=== PATIENT | female | born 1935 | race Caucasian/White ===

== ENCOUNTER → 2016-06-02 | Outpatient (CLI) | payer MEDICARE, OTHER ==
--- NOTE | 2016-06-02 15:48 | RAD ---
Indication injury, pain. Injury sustained one day earlier. AP oblique and lateral views of the right ankle were obtained. There is some soft tissue swelling over the lateral malleolus. An acute bony finding is not seen.
== END | disposition home or self-care (01) ==
LOC: RAD 14:56
PROVIDERS: ATTEND Internal Medicine
DX: S93.401A Sprain of unspecified ligament of right ankle, initial encounter (principal); M25.471 Effusion, right ankle
CPT/HCPCS: 73610

== ENCOUNTER → 2017-11-16 | Outpatient (CLI) | payer MEDICARE, OTHER ==
[~2017-11-16] MED LIST: REGADENOSON 0.4 MG/5 ML DISP.SYRIN. IV ONE
--- NOTE | 2017-11-16 11:44 | RAD ---
MR#: [id number] Date of Study: 11/16/2017 Ordering Physician: JERED LAM, Referring Physician: KVNG TOUSSAINT Tech: RT Joan (Gilberto) (N) APPROVED REPORT Test Type: Pharmacological Stress Nurse/Tech: Kimberly Lee R.N. Test Indications: chest pain Cardiac History: Family history, Hypertension Medications: See Electronic Medical Record Medical History: See Electronic Medical Record Resting ECG: NSR Resting Heart Rate: 58 bpm Resting Blood Pressure: 164/69mmHg Pretest Chest Pain: No chest pain Nurse/Tech Notes S1S2, lungs sound clear Consent: The procedure was explained to the patient in lay terms. Informed consent was witnessed. Alec eout was entered into [employer]. History and Stress Test performed by Kimberly Lee R.N. Pharm. Details Pharmacologic stress testing was performed using 0.4mg per 5ml of regadenoson given intravenously ove r 7-10 seconds. Stress Symptoms No chest pain or symptoms. POST EXERCISE Reason for Termination: Infusion complete Target HR: 119 Max HR: 81 bpm Max Blood Pressure: 150/48mmHg Blood Pressure response to exercise: Normal blood pressure response during stress. Chest Pain: No. Arrhythmia: No. ST Change: No. INTERPRETATION Stress EKG Conclusion: Baseline EKG showed sinus rhythm. No ischemic changes at peak stress. No arr hythmias. Imaging Protocol IMAGE PROTOCOL: Rest Tc-99m/stress Tc-99m 1 day Rest: Stress: Viability: Radiopharm.Tc99m [id number] Sestamibi Dose12.6mCi 35.3mCi Duration 13min. 13min. Img Date 11/16/2017 11/16/2017 Inj-Img [id number]. 60min. Rest Admin Site:IV - Left AntecubitalAdministrator:VONDA Leonard Stress Admin Site: IV - Left AntecubitalAdministrator: VONDA Leonard STRESS DATA End Diast. Vol.54.0mlLVEDV index BSA38.0ml End Syst. Vol.12.0mlLVESV index BSA9.0ml Myocardial Mass93.0gEject. Rcqutaue72.0% Stress Scores Regional WT2.00Summed WT8.00 Regional WM0.00Summed WM0.00 Study quality was good. Left Ventricular size was Normal at Rest and Stress. Lung uptake was Normal. Left Ventricular ejection fraction is 78%. The rest and stress images show normal perfusion, normal contraction and thickening. LV Perf. Quant 17 Seg. SSS0.00 17 Seg. SRS0.00 17 Seg. SDS0.00 Stress Defect Extent (% LAD)0.00Rest Defect Extent (% LAD)0.00Rev. Defect Extent (% LAD)0.00 Stress Defect Extent (% LCX) 0.00Rest Defect Extent (% LCX)0.00Rev. Defect Extent (% LCX)0.00 Stress Defect Extent (% RCA)0.00Rest Defect Extent (% RCA)0.00Rev. Defect Extent (% RCA)0.00 Stress Defect Extent (% MARIAH)0.00Rest Defect Extent (% MARIAH)0.00Rev. Defect Extent (% MARIAH)0.00 Conclusion 1. Regadenoson cardioisotope stress test did not show any evidence of ischemia or infarct. 2. Normal left ventricular systolic function with ejection fraction calculated at 78%. 3. Low risk for cardiac events. Signed by : Jason Uriostegui, Electronically Approved : 11/16/2017 11:42:59
== END | disposition home or self-care (01) ==
LOC: NM 08:10
PROVIDERS: ATTEND Internal Medicine
DX: R07.9 Chest pain, unspecified (principal); Z82.49 Family history of ischemic heart disease and other diseases of the circulatory system
CPT/HCPCS: 78452; 93017; 96374; 96375; 96376; A9500; J2785

== ENCOUNTER → 2020-07-18 | Outpatient (CLI) | payer MEDICARE, OTHER ==
[~2020-07-18] MED LIST changes: +ASPI-630 PO; +IOHEXOL 180 MG/ML 10 ML VIAL. ONE; +LOVA20TA2 PO; +MECL12.582 PO; +MELO7.5T29 PO; +PHEN300C4 PO; -REGADENOSON 0.4 MG/5 ML DISP.SYRIN. IV ONE; +SERT50TA PO; +VALP250C2 PO; +VITA25006 PO; +methylPREDNISolone ACETATE 40 MG/ML VIAL. ONE; +methylPREDNISolone ACETATE 80 MG/ML VIAL. ONE
--- NOTE | 2020-07-18 13:23 | PDOC1 ---
INITIAL PAIN CONSULT DATE OF SERVICE: DOS: DATE: 07/18/20 TIME: 13:17 CHIEF COMPLAINT: Chief Complaint: Low back and right lower extremity pain HISTORY OF PRESENT ILLNESS: 85-year-old female presents history of pain in the low back and bilateral hips as well as her right lower extremity for many years patient reports is worse over the past 2 years or so, with pain increasing the low back rating the right lower extremity posterior gluteus posterior lateral thigh lateral anterior thigh anterior medial thigh. Patient scribes as sharp and throbbing with numbness and radiating pain worse with walking standing changing positions cramping aching in the back with shooting pain in the leg patient reports is better with sitting or laying down but it wakes her from sleep occasionally not every night. Patient reports it does not affect her bowel bladder control but does affect ability to walk significantly she is not use any assistive devices however. Patient reports he simply putting up with the pain for about the last 2 years but is getting to the point where she would like to have something done with it. Patient reports her disability rating 0-10 10 being the worst is a 5 with self- care activities 3 of life support activities 3 with social activity 5 with recreational activities and 5 with family and home responsibilities. Patient did have a MRI scan lumbar spine showing previous L5-S1 fusion with posterior instrumentation levoscoliosis of the lumbar spine and facet arthropathy with susceptibility artifacts noted from the posterior fusion making it difficult to evaluate the 3 4 and 4 5 levels. Patient reports no loss of motor function but significant fatigability with walking and standing especially with right lower extremity. Patient has been doing some stretching at home on her own but is had no formal physical therapy at this time has had some chiropractic treatment which was helpful but only temporarily. Patient is taking vtmy-eza-gvzhsuy Tylenol which helps but only by about 20%. PAST MEDICAL HISTORY: PMH: Dizziness, arthritis, hearing loss PREVIOUS SURGERIES: Past Surgical Hx: Lumbar fusion, cholecystectomy CURRENT MEDICATIONS: Current Meds: Active Scripts Medications Dose Route/Sig Max Daily Dose Days Date Category Noxifol-D3 2,500 Unit-1 mg Tab (Vitamin D3/Folic Acid) 2,500 Unit Tablet 1 Tab PO DAILY 30 07/18/20 Reported Aspirin 81 Mg Tab.chew 1 Tab PO DAILY 07/18/20 Reported Valproic Acid 250 Mg Capsule 250 Mg PO TID 07/18/20 Reported Meloxicam 7.5 Mg Tablet 1 Tab PO DAILY 30 07/18/20 Reported Zoloft (Sertraline Hcl) 50 Mg Tablet 1 Tab PO DAILY 07/18/20 Reported Meclizine Hcl 12.5 Mg Tablet 1 Tab PO TID 07/18/20 Reported Phenytoin Sodium Extended 300 Mg Capsule 1 Cap PO QHS 30 07/18/20 Reported Lovastatin 20 Mg Tablet 1 Tab PO BID 07/18/20 Reported ALLERGIES; Allergies: Coded Allergies: codeine (Verified Adverse Reaction, Intermediate, from tylenol #3, made her sick, 07/18/20) FAMILY HISTORY: Family Hx: No major medical problems or conditions that she is aware of. SOCIAL HISTORY: Social Hx: Patient is nondrug alcohol does not smoke not use any illegal illicit recreational drugs is lives on her own and lives locally in [facility] and reports that she is retired. REVIEW OF SYSTEMS: ROS: Positive for those items mentioned in history of present illness, all systems are reviewed, otherwise negative ,and are complete full and well-documented on patient's chart. PHYSICAL EXAM: VS: Blood pressure is 144/88 pulse 63 respiration 16 temperature 98.1 F height is 4 foot 11 inches weight is 106 pounds PE: PHYSICAL EXAMINATION: GENERAL: The patient is awake, alert, oriented, appropriate, very pleasant demeano, patient coming by her daughter. HEENT: Shows normocephalic, atraumatic. Extraocular movements are intact and symmetrical. Oral cavity: Mucous membranes moist and pink. NECK: Shows anterior throat supple without palpable lymphadenopathy noted. Swallow reflex symmetrical. CHEST: Shows normal on inspection. Breath sounds are clear bilaterally, distant but no rales or rhonchi auscultated. HEART: Shows S1, S2 clear. No murmurs auscultated. ABDOMEN: Soft, nontender, nondistended, obese. No palpable organomegaly is noted. No rebound or guarding demonstrated. BACK: Shows spine grossly in the midline. Normal-appearing cervical lordotic curvature. There is slightly increased thoracic kyphosis, some minor flattening of the lumbar lordotic curvature. Lumbar paraspinous muscles show symmetrical on inspection, on palpation shows some moderate tenderness diffusely throughout the upper, middle and lower distribution of the paraspinous muscles bilaterally and also into the lower thoracic paraspinous musculature, firm and tender, but without specific trigger points, without radiation of pain. The patient has good rotational motion of the lumbar spine, both laterally as well as extension and flexion without significant difficulty. EXTREMITIES: Lower extremities show deep tendon reflexes 1 in the patellar and tendo calcaneus tendons. Motor exam is 4 on a scale of 5 with right dorsiflexion, extension, quadriceps and hamstring flexion and 5/5 on the left. Peripheral pulses are 1 posterior tibial. No peripheral edema is noted bilaterally. Lower extremities are warm and dry to touch, equal in color and appearance. Straight leg raise noted to be positive on the right about 35 degrees, left side is negative. Gaenslen's and Malcom's maneuvers are negative bilaterally as well. The patient is able to stand but needs assistance getting up from seated position, walks with a very shuffling gait but not use any assistive devices to ambulate. SKIN: Shows warm and dry, good turgor. No edema. No sores, rashes or bruising throughout. IMPRESSION: Impression: 85-year-old female with long history of low back right lower extremity pain and radicular fashion MRI scan lumbar spine as noted Arthritis Plan: Options were discussed with the patient patient's daughter who accompanied her visit today. We discussed conservative medical management physical therapies and interventional techniques. Patient would like to pursue interventional techniques. We discussed a lumbar epidural steroid injection using description as well as anatomical models to describe the procedure. Risks were discussed including but not limited to: Bleeding, infection, possibility of epidural hematoma and subsequent neurological compromise, dural puncture, headaches, spinal cord and/or nerve damage, side effects of steroid medication, and poor results regarding pain control. Patient understands and wished to proceed. Patient will return to clinic in approximate 2 weeks for follow-up, was counseled as return appointment activity level and side effects to be aware of. Procedure is lumbar epidural steroid injection under local anesthetic using sterile prep and drape at the L4-5 level using C-arm fluoroscopic guidance in both AP and lateral views medications injected is 120 mg Depo-Medrol + 10 mL preservative-free normal saline and 2 mL contrast- condition at discharge is stable patient tolerated procedure well had no complications. ACE MEJÍA MD Jul 18, 2020 13:23
== END | disposition home or self-care (01) ==
LOC: PNCL 08:30
PROVIDERS: ATTEND Anesthesiology
DX: M54.5 Low back pain (principal); M79.604 Pain in right leg; M19.90 Unspecified osteoarthritis, unspecified site; Z79.82 Long term (current) use of aspirin; Z79.899 Other long term (current) drug therapy; Z88.5 Allergy status to narcotic agent
CPT/HCPCS: 62323; J1030; J1040; Q9965

== ENCOUNTER → 2020-08-01 | Outpatient (CLI) | payer MEDICARE, OTHER ==
--- NOTE | 2020-08-01 08:52 | PDOC ---
Progress Note - Pain Clinic Date of Service: DOS: DATE: 08/01/20 TIME: 08:49 Diagnosis: Dx: Lumbar radiculopathy with lumbar degenerative disc disease lumbar spinal stenosis postlaminectomy syndrome History or Present Illness: HPI: 85-year-old female returns to follow-up status post lumbar epidural steroid x1. Patient reports about 80% improvement for the first week then about 50% improvement overall patient reports still some significant pain in the low back and the right greater than left lower extremity worse with walking and standing better with sitting or laying down generally is not awaken her from sleep at night patient reports pain is tingling and cramping aching can be tight as well in the low back and the right leg patient reports is in the posterior gluteus lateral thigh anterior thigh medial thigh some on the left as well but mostly on the right patient scribes as tingling and cramping in the leg especially on the right side radiating can be severe with walking better with sitting or laying down patient reports is a 10 on scale 10 is worse over the past week 8 on average 8 its least is an 8 today. Patient reports no new motor or sensory deficits no bowel or bladder cons or other complaints. Physical Exam: VS: Pressure is 139 86 pulse 10 respirations 18 temperature 97.5 F weight is 107 pounds PE: PHYSICAL EXAMINATION: GENERAL: The patient is awake, alert, oriented, appropriate, very pleasant demeanor HEENT: Shows normocephalic, atraumatic. Extraocular movements are intact and symmetrical. NECK: Shows anterior throat supple without palpable lymphadenopathy noted. Swallow reflex symmetrical. CHEST: Shows normal on inspection. Breath sounds are clear bilaterally. HEART: Shows S1, S2 clear. No murmurs auscultated. ABDOMEN: Soft, nontender, nondistended. No palpable organomegaly is noted. BACK: Shows spine grossly in the midline. Normal-appearing cervical lordotic curvature. There is slightly increased thoracic kyphosis, some minor flattening of the lumbar lordotic curvature. Well-healed surgical scars are noted in lumbar distribution. Lumbar paraspinous muscles show symmetrical on inspection, on palpation shows some moderate tenderness diffusely throughout the upper, middle and lower distribution of the paraspinous muscles, but without specific trigger points, without radiation of pain. The patient has good rotational motion of the lumbar spine, both laterally as well as extension and flexion without significant difficulty. EXTREMITIES: Lower extremities show deep tendon reflexes 1+ in the patellar and tendo calcaneus tendons. Motor exam is 4 on a scale of 5 with right dorsifl exion, extension, quadriceps and hamstring flexion and 5/5 on the left. Peripheral pulses are 1+ posterior tibial. No peripheral edema is noted bilaterally. Lower extremities are warm and dry to touch, equal in color and appearance. SKIN: Shows warm and dry, good turgor. No edema. No sores, rashes or bruising throughout. Procedure: Procedure: Options were discussed with the patient. Patient chart was reviewed as her current medication regimen updated current review of systems updated today as well. We'll proceed with a second in the series lumbar epidural steroid injection today with fluoroscopic guidance. Risks were discussed including but not limited to: Bleeding, infection, possibility of epidural hematoma and subs equent neurological compromise, dural puncture, headaches, spinal cord and/or nerve damage, side effects of steroid medication, and poor results regarding pain control. Patient understands and wished to proceed. Patient will return to clinic in approximate 2 weeks for follow-up, was counseled as to return appointment activity level and side effects to be aware of. Medication Injected: Med Injected: Procedure is lumbar epidural steroid injection under local anesthetic using sterile prep and drape at the L4-5 level using C-arm fluoroscopic guidance in both AP and lateral views medications injected is 120 mg Depo-Medrol + 10 mL preservative-free normal saline and 2 mL contrast- condition at discharge is stable patient tolerated procedure well had no complications. Condition at Discharge: Condition at Discharge: Condition at discharge is stable, patient alert procedure well and had no complications. ACE MEJÍA MD Aug 01, 2020 08:52
--- NOTE | 2020-08-01 08:53 | PDOC4 ---
PROCEDURE Procedure Patient is consented for lumbar epidural steroid injection. Risks were disc ussed including but not limited to: Bleeding, infection, possibility of epidural hematoma and subsequent neurological compromise, dural puncture, headaches, spinal cord and/or nerve damage, side effects of steroid medication, and poor results regarding pain control. Patient understands and wished to proceed. Procedure is lumbar epidural steroid injection under local anesthetic using sterile prep and drape at the 4 5 level using C-arm fluoroscopic guidance in both AP and lateral views medications injected is 120 mg Depo-Medrol + 10 mL preservative-free normal saline and 2 mL contrast- condition at discharge is stable patient tolerated procedure well had no complications. ACE MEJÍA MD Aug 01, 2020 08:53
== END | disposition home or self-care (01) ==
LOC: PNCL 08:11
PROVIDERS: ATTEND Anesthesiology
DX: M51.16 Intervertebral disc disorders with radiculopathy, lumbar region (principal); M48.061 Spinal stenosis, lumbar region without neurogenic claudication; M96.1 Postlaminectomy syndrome, not elsewhere classified; Z79.82 Long term (current) use of aspirin; Z79.899 Other long term (current) drug therapy; Z88.5 Allergy status to narcotic agent
CPT/HCPCS: 62323; J1030; J1040; Q9965

== ENCOUNTER → 2020-08-15 | Outpatient (CLI) | payer MEDICARE, OTHER ==
[~2020-08-15] MED LIST changes: -IOHEXOL 180 MG/ML 10 ML VIAL. ONE; +TRAM50TA PO; -methylPREDNISolone ACETATE 40 MG/ML VIAL. ONE; -methylPREDNISolone ACETATE 80 MG/ML VIAL. ONE
--- NOTE | 2020-08-15 09:03 | PDOC ---
Progress Note - Pain Clinic Date of Service: DOS: DATE: 08/15/20 TIME: 08:59 Diagnosis: Dx: Lumbar radiculopathy with lumbar spinal stenosis lumbar degenerative disc disease and lumbar postlaminectomy syndrome History or Present Illness: HPI: 85-year-old female returns follow-up status post lumbar epidural steroid injection x2. Patient reports initially did well with first injection of the second injection was not significantly decreasing the pain patient reports still significant pain in her low back bilateral lower extremities more on the right than the left posterior gluteus posterior lateral thigh lateral thigh anterior medial thigh and into the ankle on the right sides especially some on the left as well across the low back patient described the pain is aching and dull stabbing shooting in the leg tingling cramping stabbing radiating and severe in the low back patient reports is a 9 on scale 10 is worse with the past week 7 on average 6 its least and is a 7 today. Patient reports no new motor or sensory deficits no new bowel or bladder incontinence or other complaints. Patient taking tramadol which does decrease the pain by about 50% without side effects. Physical Exam: VS: Blood pressure is 163/74 pulse 67 respirations 18 temperature is 98.3 F weight is 108 pounds PE: PHYSICAL EXAMINATION: GENERAL: The patient is awake, alert, oriented, appropriate, very pleasant demeanor HEENT: Shows normocephalic, atraumatic. Extraocular movements are intact and symmetrical. Oral cavity: Mucous membranes moist and pink. NECK: Shows anterior throat supple without palpable lymphadenopathy noted. Sw allow reflex symmetrical. CHEST: Shows normal on inspection. Breath sounds are clear bilaterally. HEART: Shows S1, S2 clear. No murmurs auscultated. ABDOMEN: Soft, nontender, nondistended. No palpable organomegaly is noted. No rebound or guarding demonstrated. BACK: Shows spine grossly in the midline. Normal-appearing cervical lordotic curvature. There is slightly increased thoracic kyphosis, some flattening of the lumbar lordotic curvature. Well-healed surgical scarring is again noted. Lumbar paraspinous muscles show symmetrical on inspection, on palpation shows some moderate tenderness diffusely throughout the upper, middle and lower distribution of the paraspinous muscles bilaterally and also into the lower thoracic paraspinous musculature, firm and tender, but without specific trigger points, without radiation of pain. The patient has good rotational motion of the lumbar spine, both laterally as well as extension and flexion without significant difficulty. No tenderness over the spinous processes, sacrum or sacroiliac regions. EXTREMITIES: Lower extremities show deep tendon reflexes 1+ in the patellar and tendo calcaneus tendons. Motor exam is 4 on a scale of 5 with right dorsiflexion, extension, quadriceps and hamstring flexion and 5/5 on the left. Peripheral pulses are 1+ posterior tibial. No peripheral edema is noted bilaterally. Lower extremities are warm and dry to touch, equal in color and appearance. SKIN: Shows warm and dry, good turgor. No edema. No sores, rashes or bruising throughout. Procedure: Procedure: Options were discussed with the patient patient's daughter who accompanied her to her visit today. We will hold any further injections at this time as patient is not improving significantly in her radicular pain also with previous history of lumbar fusion and instrumentation we discussed a spinal cord stimulator patient is given information to review as well. We will refill patient's tramadol with instructions side effects beware of discussed and she will review the spinal cord stimulator formation if wishes to move forward will contact our office and we will make those arrangements. Medication Injected: Med Injected: None Condition at Discharge: Condition at Discharge: Condition at discharge is stable. ACE MEJÍA MD August 15, 2020 09:03
== END | disposition home or self-care (01) ==
LOC: PNCL 08:19
PROVIDERS: ATTEND Anesthesiology
DX: M51.16 Intervertebral disc disorders with radiculopathy, lumbar region (principal); M48.061 Spinal stenosis, lumbar region without neurogenic claudication; M96.1 Postlaminectomy syndrome, not elsewhere classified; Z79.82 Long term (current) use of aspirin; Z79.899 Other long term (current) drug therapy; Z88.5 Allergy status to narcotic agent
CPT/HCPCS: G0463

== ENCOUNTER → 2020-09-16 | Outpatient (CLI) | payer MEDICARE, OTHER ==
--- NOTE | 2020-09-16 15:12 | PDOC4 ---
PROCEDURE Procedure Patient was consented for spinal cord stimulator temporary leads placement x2 with fluoroscopic guidance. Risks were discussed including but not limited to: Bleeding, infection, possibility of epidural hematoma and subsequent neurological compromise, dural puncture, headaches, spinal cord and/or nerve damage, side effects of steroid medication, and poor results regarding pain control. Patient understands and wished to proceed. Under sterile prep and drape patient in prone position using C-arm fluoroscopic guidance patient's lumbar spine was identified and vertebral levels were counted did put external marker on the T8 level. This time the lumbar spine was revisualized and using 1% lidocaine, the area over the L2-3 level was anesthetized and then using a 14-gauge Toldotead needle with stylette was entered to the epidural space at the L1 -2 level using a paramedian approach to the right with preservative-free normal saline nugc-ey-fkylnnphry technique aspirat ion was noted to be negative and using direct fluoroscopy visualization spinal cord stimulator lead was then advanced without significant resistance in the midline and confirmed posterior with both AP and lateral views, and advanced to the superior endplate of the T8 vertebral level superimposed with the superior spinal cord stimulator electrode lead. Fluoroscopy was used in a lateral view to verify posterior placement in the epidural space at this point as well. At this time a second lead was then introduced in similar fashion at the L 2-3 level and inserted and in the epidural space at the L1-2 level once again with preservative-free normal saline uocm-gu-hgobsmrvof technique. Aspiration was again noted to be negative and using direct visualization with fluoroscopy second lumbar spinal cord stimulator lead was advanced without significant resistance in the midline with the superior electrode superimposed over the superior endplate of the T9 vertebral body. Lateral visualization was again confirmed with placement of the stimulator in the posterior epidural space. At this time the needles and stylette were removed with intermittent fluoroscopic visualization maintaining that the leads had not moved during this process and this was confirmed. This time 1% lidocaine was used to anesthetize the skin next to the insertion sites of the stimulator wires and using a 2-0 silk were then sutured in place. Mastisol and Tegaderm was then applied as well as reinforcing tape and gauze. Patient was transferred to the recovery area under his own power walking without difficulty and had no immediate complications from the procedure. Stimulation was then carried out with [facility] representatives. Patient will return to the clinic in approximately 1 week for removal of the temporary leads and reassessment of the patient's pain level. ACE MEJÍA MD Sep 16, 2020 15:12
--- NOTE | 2020-09-16 15:12 | PDOC ---
Progress Note - Pain Clinic Date of Service: DOS: DATE: 09/16/20 TIME: 15:07 Diagnosis: Dx: Lumbar radiculopathy, lumbar spinal stenosis ,lumbar degenerative disease, and lumbar postlaminectomy syndrome History or Present Illness: HPI: 85-year-old female returns for follow-up status post evaluation for spinal cord stimulation as well as previous lumbar epidural steroid injections with minimal long-lasting results. Patient had psychiatric evaluation as well and is cleared that it would like to proceed today with medical stimulator temporary lead placement. We discussed this with she and her daughter and they have had their questions answered we will proceed with spinal cord stimulation temporary leads placement x2 today. Patient reports pain still in the low back bilateral lower extremity slightly worse on the right than left with a burning sensation was seen to be getting worse with time patient reports its in the back rating the posterior gluteus posterior lateral thighs anterior thighs posterior thighs posterior calves again worse on the right than the left with walking standing changing positions. Rates her pain as an 8 on a scale of 10 is worst over the past week 7 on average 7 its least is a 7 today. Patient reports no new motor or sensory deficits no new bowel or bladder incontinence describes the pain is tingling and burning stabbing in the back radiating and severe in the lower extremities especially on the right side. Physical Exam: VS: Blood pressure is 169/72 pulse 61 respirations 16 temperature is 98.2 F weight is 105 pounds PE: PHYSICAL EXAMINATION: GENERAL: The patient is awake, alert, oriented, appropriate, very pleasant in demeanor, patient accompanied by her daughter. HEENT: Shows normocephalic, atraumatic. Extraocular movements are intact and symmetrical. NECK: Shows anterior throat supple without palpable lymphadenopathy noted. Swallow reflex symmetrical. CHEST: Shows normal on inspection. Breath sounds are clear bilaterally. HEART: Shows S1, S2 clear. No murmurs auscultated. ABDOMEN: Soft, nontender, nondistended. No palpable organomegaly is noted. BACK: Shows spine grossly in the midline. Normal-appearing cervical lordotic curvature. There is slightly increased thoracic kyphosis, some minor flattening of the lumbar lordotic curvature. Well-healed surgical scar is noted in the lumbar spine. Lumbar paraspinous muscles show symmetrical on inspection, on palpation shows some moderate tenderness diffusely throughout the upper, middle and lower distribution of the paraspinous muscles without specific trigger points, without radiation of pain. The patient has good rotational motion of the lumbar spine, both laterally as well as extension and flexion without significant difficulty. No tenderness over the spinous processes, sacrum or sacroiliac regions. EXTREMITIES: Lower extremities show deep tendon reflexes 1 in the patellar and tendo calcaneus tendons. Motor exam is 4 on a scale of 5 with right dorsiflexion, extension, quadriceps and hamstring flexion and 5/5 on the left. Peripheral pulses are 1+ posterior tibial. No peripheral edema is noted bilaterally. Lower extremities are warm and dry. SKIN: Shows warm and dry, good turgor. No edema. No sores, rashes or bruising throughout. Procedure: Procedure: Options were discussed with the patient, patient's old chart was reviewed as her current medication regimen updated current review of systems updated today as well. We will proceed with spinal cord stimulator temporary leads placement x2 with fluoroscopic guidance. Risk were discussed including but not limited to bleeding infection possibility of epidural hematoma and subsequent neurological compromise dural puncture headache spinal cord and or nerve damage side effects of steroid medication and poor results regarding pain control. Patient understands wished to proceed. Patient will return to clinic in approximate 1 week for follow-up and removal of temporary leads and reevaluation of patient's pain condition at that time. Medication Injected: Med Injected: Under sterile prep and drape patient in prone position using C-arm fluoroscopic guidance patient's lumbar spine was identified and vertebral levels were counted did put external marker on the T8 level. This time the lumbar spine was revisualized and using 1% lidocaine, the area over the L2-3 level was anesthetized and then using a 14-gauge [employer] needle with stylette was entered to the epidural space at the L1 -2 level using a paramedian approach to the right with preservative-free normal saline gbrx-rj-[id number] technique aspiration was noted to be negative and using direct fluoroscopy visualization spinal cord stimulator lead was then advanced without significant resistance in the midline and confirmed posterior with both AP and lateral views, and advanced to the superior endplate of the T8 vertebral level superimposed with the superior spinal cord stimulator electrode lead. Fluoroscopy was used in a lateral view to verify posterior placement in the epidural space at this point as well. At this time a second lead was then introduced in similar fashion at the L 2-3 level and inserted and in the epidural space at the L1-2 level once again with preservative-free normal saline yjka-qj-cuegmiomdi technique. Aspiration was again noted to be negative and using direct visualization with fluoroscopy second lumbar spinal cord stimulator lead was advanced without significant resistance in the midline with the superior electrode superimposed over the superior endplate of the T9 vertebral body. Lateral visualization was again confirmed with placement of the stimulator in the posterior epidural space. At this time the needles and stylette were removed with intermittent fluoroscopic visualization maintaining that the leads had not moved during this process and this was confirmed. This time 1% lidocaine was used to anesthetize the skin next to the insertion sites of the stimulator wires and using a 2-0 silk were then sutured in place. Mastisol and Tegaderm was then applied as well as reinforcing tape and gauze. Patient was transferred to the recovery area und er his own power walking without difficulty and had no immediate complications from the procedure. Stimulation was then carried out with [facility] representatives. Patient will return to the clinic in approximately 1 week for removal of the temporary leads and reassessment of the patient's pain level. Condition at Discharge: Condition at Discharge: Condition at discharge is stable, patient already procedure well and had no complications. ACE MEJÍA MD Sep 16, 2020 15:11
== END | disposition home or self-care (01) ==
LOC: PNCL 13:05
PROVIDERS: ATTEND Anesthesiology
DX: M51.16 Intervertebral disc disorders with radiculopathy, lumbar region (principal); M48.061 Spinal stenosis, lumbar region without neurogenic claudication; M96.1 Postlaminectomy syndrome, not elsewhere classified; Z79.82 Long term (current) use of aspirin; Z79.899 Other long term (current) drug therapy; Z88.5 Allergy status to narcotic agent
CPT/HCPCS: 63650; C1897

== ENCOUNTER → 2020-09-23 | Outpatient (CLI) | payer MEDICARE, OTHER ==
--- NOTE | 2020-09-23 13:26 | PDOC ---
Progress Note - Pain Clinic Date of Service: DOS: DATE: 09/23/20 TIME: :22 Diagnosis: Dx: Lumbar radiculopathy with lumbar degenerative disc disease lumbar spinal stenosis and lumbar postlaminectomy syndrome History or Present Illness: HPI: 85-year-old female returns status post spinal cord stimulator temporary leads placement 1 week ago for reevaluation and assessment today. Patient reports th at initially she was doing very well with the trial of the first 3 days or so the pain was reduced by about 75 to 80% after that it was declining and was not quite as good maybe 30 to 40% patient reports that she is disappointed in his hoping that was going to help more than it did at the end and I discussed this with the stimulator auto claim representative and we checked fluoroscopic image of the leads today and indeed they had shifted inferiorly by about 1-1-1/2 spinal vertebral levels. Patient reports her pain is been a 9 on scale 10 is worse on the past week 7 on average 7 its least is a 7 today patient describes a tingling and burning the low back and the right lower extremity but bilateral lower extremities again relieved significantly by about 75% or so early on in the stimulator temporary lead trial. Patient reports she is doing most of her activities with greater ease during that time as well as sleeping better at night but to the latter part of the. The pain did return to near its baseline. Patient reports no new motor or sensory deficits no new changes. Physical Exam: VS: Blood pressure is 120/54 pulse 76 respirations 16 temperature 97.4 Fahrenheit PE: PHYSICAL EXAMINATION: GENERAL: The patient is awake, alert, oriented, appropriate, very pleasant demeanor BACK: Shows spine grossly in the midline. Normal-appearing cervical lordotic curvature. There is slightly increased thoracic kyphosis, some minor flattening of the lumbar lordotic curvature. Patient is dressing lower taken down using sterile technique showing preserved spinal cord stimulator leads with sutures in place no erythema no drainage no significant tenderness over the area of the insertion sites of the stimulator wires. Area was sterilized with alcohol prep and sterilely dressed with new Tegaderm as well as sterile gauze and dressings. No tenderness over the spinous processes, sacrum or sacroiliac regions. SKIN: Shows warm and dry, good turgor. No edema. No sores, rashes or bruising throughout. Procedure: Procedure: Options were discussed with the patient patient's daughter who accompanied her visit today. We will maintain the leads for 2 more days with different programming now that the identified wires have been shown to move inferiorly and see if we can get better more accurate stimulator trial result. Patient and daughter were informed and also informed of any concerns that they may have to contact the office and will inspect the dressing daily. Medication Injected: Med Injected: None Condition at Discharge: Condition at Discharge: Condition at discharge is stable. ACE MEJÍA MD Sep 23, 2020 13:26
== END | disposition home or self-care (01) ==
LOC: PNCL 12:33
PROVIDERS: ATTEND Anesthesiology
DX: M51.16 Intervertebral disc disorders with radiculopathy, lumbar region (principal); M48.061 Spinal stenosis, lumbar region without neurogenic claudication; M96.1 Postlaminectomy syndrome, not elsewhere classified; Z79.82 Long term (current) use of aspirin; Z79.899 Other long term (current) drug therapy; Z88.5 Allergy status to narcotic agent
CPT/HCPCS: 77003; 99212; G0463

== ENCOUNTER → 2020-09-25 | Outpatient (CLI) | payer MEDICARE, OTHER ==
--- NOTE | 2020-09-25 12:55 | PDOC ---
Progress Note - Pain Clinic Date of Service: DOS: DATE: 09/25/20 TIME: 12:51 Diagnosis: Dx: Lumbar radiculopathy with lumbar degenerative disease lumbar spinal stenosis and lumbar postlaminectomy syndrome History or Present Illness: HPI: 85-year-old female returns to follow-up status post spinal cord stimulator leads placement x1 week an extra 2 days and we repositioned the stimulation after checking radiologically her lead positioning which had moved 2 days ago. Patient reports despite that the pain is still not well controlled in the low back bilateral lower extremities to her satisfaction. Patient reports still tingling and burning in the low back and legs bilateral posterior gluteus posterior thigh posterior calf lateral thighs and calves as well patient rates as a 7 on scale 10 is worst least and average over the past few days and is a 7 today. Patient reports still sleeping fairly well at night occasionally wakes her from sleep but only once or every 6 hours if that. Patient reports no new motor or sensory deficits no bowel or bladder incontinence or other complaints. Patient taking tramadol which she reports does do fairly well by reducing her pain about 50% without significant side effects. Physical Exam: VS: Blood pressure is 137/64 pulse 64 respirations 18 temperature 98.2 F height is 5 foot 11 inches weight is 99 pounds PE: PHYSICAL EXAMINATION: GENERAL: The patient is awake, alert, oriented, appropriate, very pleasant in demeanor, patient companied by her daughter. HEENT: Shows normocephalic, atraumatic. NECK: Shows anterior throat supple without palpable lymphadenopathy noted. BACK: Shows spine grossly in the midline. Normal-appearing cervical lordotic curvature. There is slightly increased thoracic kyphosis, some minor flattening of the lumbar lordotic curvature. Well-healed midline surgical scar is again noted. Lumbar paraspinous muscles show symmetrical on inspection, on palpation shows some moderate tenderness diffusely in the lumbar paraspinous musculature, but without specific trigger points, without radiation of pain. The patient has good rotational motion of the lumbar spine, both laterally as well as extension and flexion without significant difficulty. Bandages were taken down under diana rile technique and sutures removed with spinal cord stimulator temporary leads removed x2 with tips intact. Site shows no erythema no tenderness no drainage. Sterile bandage was applied. Procedure: Procedure: Removal spinal cord stimulator lead x2 with tips intact. Patient will follow up at this time on as-needed basis, will continue with tramadol and if would like to revisit low back pain and interventional techniques will have her follow-up at that time as desired. Medication Injected: Med Injected: None Condition at Discharge: Condition at Discharge: Condition at discharge is stable. ACE MEJÍA MD Sep 25, 2020 12:55
== END | disposition home or self-care (01) ==
LOC: PNCL 12:36
PROVIDERS: ATTEND Anesthesiology
DX: M51.16 Intervertebral disc disorders with radiculopathy, lumbar region (principal); M48.061 Spinal stenosis, lumbar region without neurogenic claudication; M96.1 Postlaminectomy syndrome, not elsewhere classified; Z79.82 Long term (current) use of aspirin; Z79.899 Other long term (current) drug therapy; Z98.890 Other specified postprocedural states; Z88.5 Allergy status to narcotic agent
CPT/HCPCS: 99212; G0463